=== PATIENT | male | born 1975 | race Caucasian/White ===

== ENCOUNTER 2019-01-28 13:02 | Observation (INO) | payer OTHER ==
[~2019-01-28] VITALS: Ht 167.6 cm; Wt 109.0 kg
[~2019-01-28 13:02] MED LIST: LOSA25TA2; METF-849
[2019-01-28] MEDS ORDERED: ASPIRIN 325 MG TAB PO STA (13:26)
[2019-01-28] MEDS ORDERED: NITROGLYCERIN 2% 1 GM OINT PKT TD STA (13:26)
[2019-01-28] MEDS ORDERED: morphine 4 MG/ML VIAL IV STA ×3 (13:26→20:47)
[2019-01-28] MEDS ORDERED: ONDANSETRON 4 MG INJ IV STA ×3 (13:26→20:47)
--- NOTE | 2019-01-28 14:04 | ERD ---
ER Documentation Chief Complaint Chief Complaint chest pain and sob since yesterday sent by pmd for abnormal ekg HPI 44-year-old gentleman history of hypertension hyperlipidemia diabetes who presents to the emergency room with chest pain. The patient states that yesterday evening he started to have chest discomfort. He describes it as a flicking sharp sensation in his left chest. Some subtle pleuritic component. No shortness of breath but strongly associated with diaphoresis. He went to a primary care office today and he said that his EKG was abnormal. He was sent to the emergency room. He does describe some moderate discomfort currently. He denies any mid back pain. He has had a mild sore throat. No cough. No recent travel immobilization or calf swelling. No prior history of cardiac disease and no prior cardiac work-up. ROS All systems reviewed and are negative except as per history of present illness. Medications Home Meds Reported Medications Atorvastatin Calcium (Atorvastatin Calcium) 20 Mg Tablet, 1 TAB ORAL QHS 01/28/19 Metformin Hcl* (Metformin Hcl*) 1,000 Mg Tablet, 1 TAB ORAL BID 01/28/19 Losartan Potassium* (Losartan Potassium*) 50 Mg Tablet, 1 TAB ORAL DAILY 01/28/19 Insulin Glargine* (Lantus*) 100 Unit/Ml Soln, 60 UNITS SC QHS 01/28/19 Glipizide* (Glipizide*) 10 Mg Tablet, 1 TAB ORAL BID 01/28/19 Insulin Lispro (Humalog Kwikpen U-100) 100 Unit/1 Ml Insuln.pen, 25 UNITS SC AC B 01/28/19 Omeprazole* (Omeprazole*) 20 Mg Capsule.dr, 1 CAP ORAL DAILY 01/28/19 Discontinued Reported Medications Losartan Potassium* (Cozaar*) 25 Mg Tablet 07/20/11 Metformin* (Glucophage*) 500 Mg Tab 07/20/11 Allergies Allergies: Coded Allergies: No Known Allergy (Unverified , 01/28/19) PMhx/Soc History of Surgery: Yes (ABDOMEN) Anesthesia Reaction: No Hx Neurological Disorder: No Hx Respiratory Disorders: No Hx Cardiac Disorders: Yes (HTN) Hx Psychiatric Problems: No Hx Miscellaneous Medical Probl: Yes (HTN) Hx Alcohol Use: Yes (Very rarely) Hx Substance Use: No Hx Tobacco Use: No Smoking Status: Never smoker FmHx Family History: No diabetes Physical Exam Vitals Vital Signs Date Temp Pulse Resp B/P (MAP) Pulse Ox O2 O2 Flow FiO2 Time Delivery Rate 01/28/19 98.0 104 18 154/91 98 Room Air 13:42 (112) 01/28/19 98.0 117 18 133/87 98 13:05 (102) Physical Exam General: Diaphoretic Head: Normocephalic, atraumatic. Eyes: Pupils equally reactive, EOM intact ENT: Moist mucous membranes Neck: Supple, no lymphadenopathy Respiratory: Lungs clear bilaterally, no distress Cardiovascular: RRR, no murmurs, rubs, or gallops Abdominal: Soft, non-tender, non-distended, no peritoneal signs : Deferred MSK: No edema, no unilateral swelling, 5/5 strength Neurologic: Alert and oriented, moving all extremities, normal speech, no focal weakness, no cerebellar signs Skin: No rash Psych: Normal mood Result Diagram: 01/28/19 1329 01/28/19 1329 Results 24 hrs Laboratory Tests Test 01/28/19 13:24 01/28/19 13:29 D-Dimer 306.73 ng/ml D-Dimer Comment Bedside Glucose 276 mg/dL White Blood Count 8.3 10^3/ul Red Blood Count 5.32 10^6/ul Hemoglobin 13.7 g/dl Hematocrit 43.1 % Mean Corpuscular Volume 81.0 fl Mean Corpuscular Hemoglobin 25.8 pg Mean Corpuscular Hemoglobin Concent 31.8 g/dl Red Cell Distribution Width 14.4 % Platelet Count 354 10^3/UL Mean Platelet Volume 10.0 fl Immature Granulocytes % 0.400 % Neutrophils % 75.3 % Lymphocytes % 12.0 % Monocytes % 10.7 % Eosinophils % 1.1 % Basophils % 0.5 % Nucleated Red Blood Cells % 0.0 /100WBC Immature Granulocytes # 0.030 10^3/ul Neutrophils # 6.3 10^3/ul Lymphocytes # 1.0 10^3/ul Monocytes # 0.9 10^3/ul Eosinophils # 0.1 10^3/ul Basophils # 0.0 10^3/ul Nucleated Red Blood Cells # 0.0 10^3/ul Sodium Level 137 mmol/L Potassium Level 4.3 mmol/L Chloride Level 96 mmol/L Carbon Dioxide Level 29 mmol/L Anion Gap 12 Blood Urea Nitrogen 14 mg/dl Creatinine 0.89 mg/dl Est Glomerular Filtrat Rate mL/min > 60 mL/min Glucose Level 310 mg/dl Calcium Level 10.2 mg/dl Troponin I < 0.012 ng/ml Current Medications Medications Dose Sig/Jevon Start Time Status Last (Trade) Ordered Route PRN Stop Time Admin Dose Reason Admin Aspirin 325 mg ONCE STAT 01/28/19 DC 01/28/19 (Aspirin) PO 13:26 13:34 01/28/19 13:28 1 inch ONCE STAT 01/28/19 DC 01/28/19 Nitroglycerin TD 13:26 13:34 01/28/19 13:28 (Nitroglyceri n 2% Oint) Morphine 4 mg ONCE STAT 01/28/19 DC 01/28/19 Sulfate IV 13:26 13:35 (morphine) 01/28/19 13:28 Ondansetron 4 mg ONCE STAT 01/28/19 DC 01/28/19 HCl (Zofran IV 13:26 13:34 Inj) 01/28/19 13:28 Procedures/MDM EKG, MONITORS, & DIAGNOSTIC IMAGING: EKG: I reviewed and interpreted a 12-lead EKG. Rhythm: Normal sinus rhythm ST Changes: No contiguous ST segment elevations T waves: No contiguous T wave inversions Impression: [No evidence of acute cardiac ischemia], however Q waves are noted in the inferior leads III and aVF Repeat EKG: EKG: I reviewed and interpreted a 12-lead EKG. Rhythm: Normal sinus rhythm ST Changes: No contiguous ST segment elevations T waves: No contiguous T wave inversions Impression: [No evidence of acute cardiac ischemia] Chest x-ray: I reviewed and interpreted a 1 view of the chest Mediastinum: No enlargement Cardiac silhouette: No cardiomegaly Airspace: Clear lung nunez bilaterally without evidence of pneumothorax Bones: No evidence of fracture PROCEDURES: [None] LAB INTERPRETATION: * Negative troponin, hyperglycemia without DKA, negative d-dimer MEDICAL DECISION MAKING: The patient's history, physical exam and clinical presentation is concerning for possible cardiogenic etiology and acute coronary syndrome. I am concerned that the patient has an element of associated diaphoresis. Based on the patient's clinical exam and history and risk factors, I have a much lower clinical concern for pulmonary embolism, acute aortic dissection, pneumothorax, pneumonia, cardiac tamponade. Despite low concern for pulmonary embolism there is a slight tachycardia and slight pleuritic component. D-dimer appropriate. Wells low risk criteria met. HEART Score: 5 MACE Rate: 16.6% Shared Decision Making: We had a conversation regarding risk stratification, MACE rate, and the risks, benefits, alternatives of disposition planning options. Disposition planning: Admission ER COURSE: * Aspirin nitro morphine provided. * Chest pain-free currently. * Troponin is negative. * Hospitalist team was concerned that the patient may require a Feed House Supervisor at some point during his hospital stay. They are recommending speaking to mexican food cook. * I discussed the case with Dr. Patrick, he reviewed the EKGs. He does not feel the patient requires emergent transfer to [facility] center. He does however state that this is someone who may require an angiogram during inpatient stay. He recommends attempt to transfer to a facility that has a active Feed House Supervisor. * Insurance carrier has been contacted to assist with transfer to appropriate facility. CONSULTATION: [None] DISPOSITION PLAN: Telemetry admission for management of chest pain to rule out acute coronary syndrome, serial enzymes, risk stratification and consideration of provocative testing CONSULTATION: Admitting team: Pending assignment given need for possible transfer as discussed above. Patient is pending disposition plan based on above. Departure Diagnosis: Primary Impression: Chest pain Chest pain type: unspecified Qualified Codes: R07.9 - Chest pain, unspecified Additional Impression: Hyperglycemia Condition: Stable QUITA DOLAN MD Jan 28, 2019 14:04
[2019-01-28] MEDS ORDERED: GLIP10TA14 ORAL (14:10)
[2019-01-28] MEDS ORDERED: INSU100I12 SC (14:10)
[2019-01-28] MEDS ORDERED: LOSA50TA14 ORAL (14:10)
[2019-01-28] MEDS ORDERED: METF100010 ORAL (14:10)
[2019-01-28] MEDS ORDERED: ATOR20TA65 ORAL (14:10)
[2019-01-28] MEDS ORDERED: OMEP20CA16 ORAL (14:10)
[2019-01-28] MEDS ORDERED: LANT3I SC (14:10)
--- NOTE | 2019-01-28 21:20 | HP ---
Date/Time of Note Date/Time of Note DATE: 01/28/19 TIME: 21:19 Assessment/Plan VTE Prophylaxis SCD applied (from Nsg): Yes Pharmacological prophylaxis: NA/contraindicated Pharm contraindication: low risk/ambulating Lines/Catheters IV Catheter Type (from Nrsg): Saline Lock Assessment/Plan Hospital Course This is a 44-year-old male being admitted to the telemetry floor for: #1 chest pain: Rule out ACS. Will trend cardiac enzymes x3, the first that was negative. Will check an echocardiogram. PRN morphine. Will remove the nitroglycerin patch at the current time as the patient does report a headache and I think this may be the cause of it. Will consult cardiology . Patient was attempted to be transferred to another facility for cardiac cath however no bed was able to be obtained. #2 severe headache: Possibly secondary to Nitropatch, however he is not having any relief with morphine. We will remove the nitro patch. Will obtain a CT of the head without contrast stat. #3 Diabetes mellitus: We will resume home insulin, will hold home oral medications especially metformin given possible need for cardiac catheter in the coming days. Insulin sliding scale. #4 hyperlipidemia: We will check lipid panel, continue statin #5 hypertension: Continue losartan #6 obesity: We will check hemoglobin A 1C, lipid panel, TSH #7 DVT GI prophylaxis: SCDs, home PPI Further treatment strategy will be implemented as per the clinical course Result Diagram: 01/28/19 1329 01/28/19 1329 Results 24hrs Laboratory Tests Test 01/28/19 13:24 01/28/19 13:29 01/28/19 19:33 D-Dimer 306.73 D-Dimer Comment Bedside Glucose 276 H White Blood Count 8.3 Red Blood Count 5.32 Hemoglobin 13.7 L Hematocrit 43.1 Mean Corpuscular Volume 81.0 L Mean Corpuscular Hemoglobin 25.8 L Mean Corpuscular Hemoglobin Concent 31.8 L Red Cell Distribution Width 14.4 Platelet Count 354 Mean Platelet Volume 10.0 Immature Granulocytes % 0.400 Neutrophils % 75.3 Lymphocytes % 12.0 L Monocytes % 10.7 Eosinophils % 1.1 Basophils % 0.5 Nucleated Red Blood Cells % 0.0 Immature Granulocytes # 0.030 Neutrophils # 6.3 Lymphocytes # 1.0 Monocytes # 0.9 Eosinophils # 0.1 Basophils # 0.0 Nucleated Red Blood Cells # 0.0 Sodium Level 137 Potassium Level 4.3 Chloride Level 96 L Carbon Dioxide Level 29 Anion Gap 12 Blood Urea Nitrogen 14 Creatinine 0.89 Est Glomerular Filtrat Rate mL/min > 60 Glucose Level 310 H Calcium Level 10.2 Troponin I < 0.012 < 0.012 Creatine Kinase 47 Creatine Kinase Index 0.6 Creatinine Kinase MB (Mass) 0.27 HPI/ROS Admit Date/Time Admit Date/Time Hx of Present Illness Chief complaint: Chest pain 44-year-old gentleman history of hypertension hyperlipidemia diabetes who presents to the emergency room with chest pain. The patient states that yesterday evening he started to have chest discomfort. He describes it as a sharp sensation in his left chest. Some subtle pleuritic component. No shortness of breath but strongly associated with diaphoresis. He went to a primary care office today and he said that his EKG was abnormal. He was sent to the emergency room. He does describe some moderate discomfort currently. He denies any mid back pain. He has had a mild sore throat. No cough. No recent travel immobilization or calf swelling. The ED physician did discuss the case with hospitalist as well as hot die press feeder and decision was made to attempt to transfer the patient to a working Insurance Marketing Specialist facility if possible. As no beds were found patient was admitted for further work-up. Upon my examination of the patient at the bedside he does report a severe headache that has not been relieved with morphine. He does currently have a nitro patch on. Allergies: NKDA Medications: glipizide 10 mg p.o. twice daily Metformin 1000 mg p.o. twice daily Atorvastatin 20 mg p.o. nightly Lantus 60 units subcu nightly Insulin lispro 25 units AC at bedtime Losartan 50 mg p.o. daily Omeprazole 20 mg p.o. daily indications: ROS Const: As per HPI Eyes : No pain discharge or redness or change in visual acuity ENT: As per HPI Respiratory: No shortness of breath, cough, sputum, wheezing, or pleuritic pain Cardiovascular: As per HPI GI : no change in appetite, abdominal pain, nausea, vomiting, diarrhea, constipation, or change in the color his stool Genitourinary: No dysuria, hematuria, flank pain , discharge or CVA tenderness Musculoskeletal: No joint pain, back pain, neck pain, restricted range of motion in neck or joints Skin: No rash, bruising or hives Neuro: As per HPI Endocrine: No polyuria, polydipsia, temperature intolerance Psych: No hallucination, depression, anxiety or suicidal ideation PMH/Family/Social Past Medical History Diabetes mellitus, hyperlipidemia, hypertension Coded Allergies: No Known Allergy (Unverified , 01/28/19) Past Surgical History Abdominal surgery status post work accident Family History Significant Family History: no pertinent family hx Social History Alcohol Use: none Smoking Status: Never smoker Drug Use: none Exam/Review of Systems Vital Signs Vitals Vital Signs Date Temp Pulse Resp B/P (MAP) Pulse Ox O2 O2 Flow FiO2 Time Delivery Rate 01/28/19 94 20 147/91 100 Room Air 21:00 (109) 01/28/19 98.2 18:00 Exam Exam General: Patient is a pleasant male currently lying in bed he does not appear to be in any acute distress, but he does report a headache. HEENT: Atraumatic, normocephalic. The pupils are equal, round and reactive. Extraocular motor are intact, throat mildly hyperemic, no tonsillar exudates seen. Neck: Supple with full range of motion. No rigidity or meningismus Chest: Nontender Lungs: Clear to auscultation bilaterally no crackles rales or wheezing Heart: Normal S1-S2, Regular rhythm and rate. No murmur, S3, or S4 Abdomen: Obese, soft , nontender, nondistended , bowel sounds are present. No guarding no rebound tenderness , No masses or organomegaly. No costovertebral temporal angle mass Extremities: Normal to inspection, no edema no cyanosis Neurologic: Normal mental status, speech normal, cranial nerves II through XII are intact, motor and sensory are intact, no focal weakness Additional Comments EKG: Rhythm: Normal sinus rhythm ST Changes: No contiguous ST segment elevations T waves: No contiguous T wave inversions Impression: [No evidence of acute cardiac ischemia], however Q waves are noted in the inferior leads III and aVF PROCEDURE: XR Chest. CLINICAL INDICATION: Shortness of breath. TECHNIQUE: Single frontal view. COMPARISON: 07/20/2011 FINDINGS: The lungs are clear. The heart size is normal. There is no pleural effusion. There is no pneumothorax. IMPRESSION: No focal consolidation. RPTAT: QQ Aroldo Naidu Physician Date Time Electronically viewed and signed by Aroldo Naidu, Physician on 01/28/2019 13:44 RD/ CC: QUITA DOLAN MD [id number] MARVA DAVIS Jan 28, 2019 21:20
[2019-01-28] MEDS ORDERED: ONDANSETRON 4 MG INJ IV PRN ×2 (21:30→22:00)
[2019-01-28] MEDS ORDERED: BISACODYL (EC) 5 MG TAB PO PRN (21:30)
[2019-01-28] MEDS ORDERED: DOCUSATE SODIUM 100 MG CAP PO PRN (21:30)
[2019-01-28] MEDS ORDERED: NACL 0.9% 3 ML SYG IV SCH (21:30)
[2019-01-28] MEDS ORDERED: NITROGLYCERIN (SL) 0.4 MG TAB SL PRN (21:30)
[2019-01-28] MEDS ORDERED: ACETAMINOPHEN 325 MG TAB PO PRN (22:00)
[2019-01-28] MEDS ORDERED: INSULIN GLARGINE [LANTus] (100 UNITS/ML) SYG SC SCH (22:30)
[2019-01-28 23:30] VITALS: Ht 167.6 cm; Wt 109.0 kg
[2019-01-29 00:10] VITALS: BP 122/78; PULSE 95; RESP 20
[2019-01-29] MEDS: HEPARIN 5,000 UNIT/1 ML VIAL SC SCH ×3 (00:28→14:09)
[2019-01-29] MEDS: ACETAMINOPHEN 325 MG TAB PO PRN ×2 (00:52→08:14)
[2019-01-29] MEDS: morphine 2 MG INJ IV PRN ×3 (02:18→10:33)
[2019-01-29 04:17] VITALS: BP 125/68; PULSE 93; RESP 20
[2019-01-29] MEDS ORDERED: PANTOPRAZOLE (EC) 40 MG TAB PO SCH (06:00)
[2019-01-29] MEDS ORDERED: INSULIN ASPART [NOVOLOG] 3 ML PEN SC SCH ×2 (07:00→18:00)
[2019-01-29 07:21] VITALS: BP 126/71; PULSE 86; RESP 17
[2019-01-29] MEDS ORDERED: LOSARTAN 50 MG TAB PO SCH (09:00)
[2019-01-29] MEDS ORDERED: ASPIRIN 81 MG TAB PO SCH (09:00)
[2019-01-29 11:28] VITALS: BP 124/69; PULSE 59; RESP 19
--- NOTE | 2019-01-29 11:33 | CONS ---
Assessment/Plan Assessment/Plan Hospital Course (Demo Recall) Chest pain: Rule out ACS diabetes: Poorly controlled hypertension: Under control now Dyslipidemia: Under control with statin Headache Recommendations: We will continue with the current cardiac care for now. We will schedule patient for Lexiscan stress addressing the obstructive coronary artery disease Echocardiogram will be checked thank you Thank you ENEDELIA CHU MD [facility] Consultation Date/Type/Reason Admit Date/Time Date of Consultation: Jan 29, 2019 Type of Consult Cardiology Reason for Consultation chest pain Requesting Provider: MARVA DAVIS Date/Time of Note DATE: 01/29/19 TIME: 11:30 Hx of Present Illness Interventional cardiology consultation note Chief complaint: Chest pain high blood pressure. Diaphoresis Reason for consult: Aspirin History of present illness: Thank you for this referral. This is a pleasant 44-year-old gentleman history of diabetes poorly controlled hypertension dyslipidemia who came to emergency room with complaint. Patient said he had episode of chest pain mostly sharp on the left side a few days ago. He also has had sweating and diaphoresis. He also complains of headache since he has come to the hospital. His chest pain has resolved noncardiac and have been negative. She does not exercise more than he just had a knee surgery for meniscus repair on his knee and is not able to walk much Allergies: No known drug allergy Medications were reviewed as per medical reconciliation sheet Family history: No history of early coronary artery disease Social history: Non-smoker Past medical history: Diabetes hypertension dyslipidemia obesity osteoarthritis of the knees status post meniscus injury and repair about 2 months ago Review of system: Patient denies all others except for above-mentioned Past Medical History Home Meds Reported Medications Atorvastatin Calcium (Atorvastatin Calcium) 20 Mg Tablet, 1 TAB ORAL QHS 01/28/19 Metformin Hcl* (Metformin Hcl*) 1,000 Mg Tablet, 1 TAB ORAL BID 01/28/19 Losartan Potassium* (Losartan Potassium*) 50 Mg Tablet, 1 TAB ORAL DAILY 01/28/19 Insulin Glargine* (Lantus*) 100 Unit/Ml Soln, 60 UNITS SC QHS 01/28/19 Glipizide* (Glipizide*) 10 Mg Tablet, 1 TAB ORAL BID 01/28/19 Insulin Lispro (Humalog Kwikpen U-100) 100 Unit/1 Ml Insuln.pen, 25 UNITS SC AC B 01/28/19 Omeprazole* (Omeprazole*) 20 Mg Capsule.dr, 1 CAP ORAL DAILY 01/28/19 Discontinued Reported Medications Losartan Potassium* (Cozaar*) 25 Mg Tablet 07/20/11 Metformin* (Glucophage*) 500 Mg Tab 07/20/11 Medications Current Medications IV Flush (NS 3 ml) 3 ml PER PROTOCOL IV ; Start 01/28/19 at 21:30 Ondansetron HCl (Zofran Inj) 4 mg Q6H PRN IV NAUSEA/VOMITING; Start 01/28/19 at 21:30 Aspirin (Aspirin) 81 mg DAILY PO Last administered on 01/29/19at 08:15; Admin Dose 81 MG; Start 01/29/19 at 09:00 Nitroglycerin (Nitroglycerin (Sl Tab) 0.4 Mg) 1 tab Q5M PRN SL .CHEST PAIN; Start 01/28/19 at 21:30 Acetaminophen (Tylenol Tab) 650 mg Q6H PRN PO .PAIN 1-3 OR TEMP Last administered on 01/29/19at 08:14; Admin Dose 650 MG; Start 01/28/19 at 21:30 Morphine Sulfate (morphine) 2 mg Q4H PRN IV .PAIN 7-10 Last administered on 01/29/19at 10:33; Admin Dose 2 MG; Start 01/28/19 at 21:30 Docusate Sodium (Colace) 100 mg Q12H PRN PO .CONSTIPATION; Start 01/28/19 at 21:30 Bisacodyl (Dulcolax) 5 mg DAILY PRN PO .CONSTIPATION; Start 01/28/19 at 21:30 Heparin Sodium (Porcine) (Heparin (5000 Units/1ml)) 5,000 unit Q8 SC Last administered on 01/29/19at 05:26; Admin Dose 5,000 UNIT; Start 01/28/19 at 22:00 Insulin Glargine (Lantus) 60 units QHS SC Last administered on 01/29/19at 00:59; Admin Dose 60 UNITS; Start 01/28/19 at 22:30 Insulin Aspart (Novolog Insulin Pen) 25 unit AC BREAKFAST SC Last administered on 01/29/19at 10:22; Admin Dose 25 UNIT; Start 01/29/19 at 07:00 Pantoprazole (Protonix Tab) 40 mg DAILY@06 PO Last administered on 7/23/19at 05:21; Admin Dose 40 MG; Start 01/29/19 at 06:00 Atorvastatin Calcium (Lipitor) 20 mg QHS PO ; Start 01/29/19 at 21:00 Losartan Potassium (Cozaar) 50 mg DAILY PO Last administered on 01/29/19at 08:15; Admin Dose 50 MG; Start 01/29/19 at 09:00 Allergies: Coded Allergies: No Known Allergy (Unverified , 01/28/19) Social History Alcohol Use: none Smoking Status: Former smoker Drug Use: none Exam/Review of Systems Vital Signs Vitals Vital Signs Date Temp Pulse Resp B/P (MAP) Pulse Ox O2 O2 Flow FiO2 Time Delivery Rate 01/29/19 98.0 59 19 124/69 93 11:28 (87) 01/28/19 Room Air 22:10 Intake and Output 01/28/19 01/28/19 01/29/19 1515:00 23:00 07:00 IntakeIntake Total 240 ml BalanceBalance 240 ml Exam Exam General: no acute distress HEENT: NC/AT. pupils are equal. round. NECK: NO JVD. no stridor. CV: RRR. systolic murmur; no gallop or rubs. PULM: no wheezing or rhonchi. GI: SOFT, NT, ND, no rebound or guarding Extremity: trace B/L LE edema. no clubbing. neuro: awake and alert, OX3. Psych: calm and pleasant rectal: deferred EKG was personally reviewed showed normal sinus rhythm nonspecific ST-T wave abnormalities CT of the head read by radiology shows:Negative unenhanced head CT. Labs Result Diagram: 01/29/19 0501/29/19 0525 Results 24hrs Laboratory Tests Test 01/28/19 13:24 01/28/19 13:29 01/28/19 19:33 01/28/19 22:22 D-Dimer 306.73 D-Dimer Comment Bedside Glucose 276 H 264 H White Blood Count 8.3 Red Blood Count 5.32 Hemoglobin 13.7 L Hematocrit 43.1 Mean Corpuscular 81.0 L Volume Mean Corpuscular 25.8 L Hemoglobin Mean Corpuscular 31.8 L Hemoglobin Concent Red Cell 14.4 Distribution Width Platelet Count 354 Mean Platelet Volume 10.0 Immature 0.400 Granulocytes % Neutrophils % 75.3 Lymphocytes % 12.0 L Monocytes % 10.7 Eosinophils % 1.1 Basophils % 0.5 Nucleated Red Blood 0.0 Cells % Immature 0.030 Granulocytes # Neutrophils # 6.3 Lymphocytes # 1.0 Monocytes # 0.9 Eosinophils # 0.1 Basophils # 0.0 Nucleated Red Blood 0.0 Cells # Sodium Level 137 Potassium Level 4.3 Chloride Level 96 L Carbon Dioxide Level 29 Anion Gap 12 Blood Urea Nitrogen 14 Creatinine 0.89 Est Glomerular > 60 Filtrat Rate mL/min Glucose Level 310 H Calcium Level 10.2 Troponin I < 0.012 < 0.012 Creatine Kinase 47 Creatine Kinase 0.6 Index Creatinine Kinase MB 0.27 (Mass) Test 01/29/19 00:45 01/29/19 05:25 01/29/19 08:04 01/29/19 10:16 Creatine Kinase 41 Creatine Kinase 0.7 Index Creatinine Kinase MB 0.29 (Mass) Troponin I < 0.012 White Blood Count 8.0 Red Blood Count 4.80 Hemoglobin 12.3 L Hematocrit 39.5 L Mean Corpuscular 82.3 Volume Mean Corpuscular 25.6 L Hemoglobin Mean Corpuscular 31.1 L Hemoglobin Concent Red Cell 14.7 H Distribution Width Platelet Count 293 Mean Platelet Volume 10.3 Immature 0.400 Granulocytes % Neutrophils % 71.4 Lymphocytes % 13.3 L Monocytes % 13.6 H Eosinophils % 0.9 Basophils % 0.4 Nucleated Red Blood 0.0 Cells % Immature 0.030 Granulocytes # Neutrophils # 5.7 Lymphocytes # 1.1 Monocytes # 1.1 H Eosinophils # 0.1 Basophils # 0.0 Nucleated Red Blood 0.0 Cells # Sodium Level 136 Potassium Level 4.4 Chloride Level 94 L Carbon Dioxide Level 35 H Anion Gap 7 Blood Urea Nitrogen 14 Creatinine 0.96 Est Glomerular > 60 Filtrat Rate mL/min Glucose Level 291 H Hemoglobin A1c 9.2 H Calcium Level 9.2 Magnesium Level 2.0 Total Bilirubin 0.9 Direct Bilirubin 0.00 Indirect Bilirubin 0.9 Aspartate Amino 40 Transf (AST/SGOT) Alanine 63 Aminotransferase (AL T/SGPT) Alkaline Phosphatase 80 Total Protein 6.7 Albumin 3.8 Globulin 2.90 Albumin/Globulin 1.31 Ratio Triglycerides Level 296 H Cholesterol Level 130 LDL Cholesterol, 48 Calculated HDL Cholesterol 23 L Cholesterol/HDL 5.6 Ratio Thyroid Stimulating 1.260 Hormone (TSH) Bedside Glucose 266 H 374 H Medications Medications Current Medications IV Flush (NS 3 ml) 3 ml PER PROTOCOL IV ; Start 01/28/19 at 21:30 Ondansetron HCl (Zofran Inj) 4 mg Q6H PRN IV NAUSEA/VOMITING; Start 01/28/19 at 21:30 Aspirin (Aspirin) 81 mg DAILY PO Last administered on 01/29/19 08:15; Admin Dose 81 MG; Start 01/29/19 at 09:00 Nitroglycerin (Nitroglycerin (Sl Tab) 0.4 Mg) 1 tab Q5M PRN SL .CHEST PAIN; Start 01/28/19 at 21:30 Acetaminophen (Tylenol Tab) 650 mg Q6H PRN PO .PAIN 1-3 OR TEMP Last administered on 01/29/19 08:14; Admin Dose 650 MG; Start 01/28/19 at 21:30 Morphine Sulfate (morphine) 2 mg Q4H PRN IV .PAIN 7-10 Last administered on 01/29/19at 10:33; Admin Dose 2 MG; Start 01/28/19 at 21:30 Docusate Sodium (Colace) 100 mg Q12H PRN PO .CONSTIPATION; Start 01/28/19 at 21:30 Bisacodyl (Dulcolax) 5 mg DAILY PRN PO .CONSTIPATION; Start 01/28/19 at 21:30 Heparin Sodium (Porcine) (Heparin (5000 Units/1ml)) 5,000 unit Q8 SC Last administered on 01/29/19at 05:26; Admin Dose 5,000 UNIT; Start 01/28/19 at 22:00 Insulin Glargine (Lantus) 60 units QHS SC Last administered on 01/29/19at 00:59; Admin Dose 60 UNITS; Start 01/28/19 at 22:30 Insulin Aspart (Novolog Insulin Pen) 25 unit AC BREAKFAST SC Last administered on 01/29/19at 10:22; Admin Dose 25 UNIT; Start 01/29/19 at 07:00 Pantoprazole (Protonix Tab) 40 mg DAILY@06 PO Last administered on 01/29/19 05:21; Admin Dose 40 MG; Start 01/29/19 at 06:00 Atorvastatin Calcium (Lipitor) 20 mg QHS PO ; Start 01/29/19 at 21:00 Losartan Potassium (Cozaar) 50 mg DAILY PO Last administered on 01/29/19at 08:15; Admin Dose 50 MG; Start 01/29/19 at 09:00 ENEDELIA CHU MD Jan 29, 2019 11:33
--- NOTE | 2019-01-29 12:30 | RADRPT ---
Echocardiogram Report Patient Name: PATRICK MORGANPatient ID: [id number] : 1975 (44y )Study Date: 01/29/2019 7:21:25 AM Gender: MAccession #: [id number] Tech: Marquis Mattson RDCS Location: [facility] Ref.Physician: MARVA DAVIS Height(Cm): BSA: Weight(Kg): Quality: AdequateOrder Physician: MARVA DAVIS Account #: Procedures: Echocardiographic Report: Transthoracic echocardiogram with complete 2D, M-Mode, and doppler examination. Indications: Chest Pain. Measurements: 2D/M Mode Doppler Measurement Value Normal Range Measurement Value Normal Range LVIDd 2D 4.3 [ 4.2 - 5.8 ] cm AV Peak Gustavo 1.5 [ 100.0 - 170.0 ] cm/sec LVIDs 2D 2.5 [ 2.5 - 4.0 ] cm AV Peak PG 9.0 [ 2.0 - 9.0 ] mmHg LVPWd 2D 1.2 [ 0.6 - 1.0 ] cm LVOT Peak Gustavo 1.1 [ 70.0 - 110.0 ] cm/sec IVSd 2D 1.0 [ 0.6 - 1.0 ] cm LVOT Peak PG 5.0 [ 2.0 - 6.0 ] mmHg AoR Diam 2D 3.2 [ 2.6 - 3.4 ] cm MV E Peak Gustavo 0.7 [ 60.0 - 130.0 ] cm/sec EDV 2D 83.1 [ 62.0 - 150.0 ] ml MV A Peak Gustavo 0.7 [ 100.0 - 120.0 ] cm/sec ESV 2D 21.4 [ 21.0 - 61.0 ] ml MV E/A 1.0 [ 0.8 - 1.5 ] ratio EF 2D 74.2 [ 52.0 - 72.0 ] percent MV Decel Time 197 [ 104 - 258 ] msec LA Dimen 2D 3.3 [ 3.0 - 4.0 ] cm Lat E` Gustavo 0.1 [ 10.0 - 15.0 ] cm/sec Lateral E/E` 5.4 [ 1.0 - 2.0 ] ratio Med E` Gustavo 0.1 cm/sec MV E/A 1.0 [ 0.8 - 1.5 ] ratio TR Peak Gustavo 2.3 [ 100.0 - 280.0 ] cm/sec TR Peak PG 20.0 mmHg RVSP 30.0 [ 10.0 - 36.0 ] mmHg RA Pressure 10.0 mmHg Findings: Left Ventricle: Normal left ventricular systolic function. Normal left ventricular cavity size. Mild concentric left ventricular hypertrophy. Ejection fraction is visually estimated at 65 %. Tissue Doppler/Mitral Doppler indices are consistent with impaired relaxation (Stage I diastolic dysfunction). Right Ventricle: Normal right ventricular size. Normal right ventricular systolic function. Left Atrium: The left atrium is normal in size. Right Atrium: The right atrium is normal in size. Mitral Valve: Normal appearance and function of the mitral valve with trace physiologic regurgitation. Aortic Valve: Normal appearance of the aortic valve. No significant aortic stenosis or insufficiency. Tricuspid Valve: Normal appearance and function of the tricuspid valve with trace physiologic regurgitation. Normal right ventricular systolic pressure. The estimated Peak RVSP is 30 mmHg. Pulmonic Valve: Normal pulmonic valve appearance. Pericardium: Normal pericardium with no significant pericardial effusion. Aorta: Normal aortic root. IVC: Normal size and normal respiratory collapse consistent with normal right atrial pressure. Conclusions: Normal left ventricular systolic function. Normal left ventricular cavity size. Mild concentric left ventricular hypertrophy. Ejection fraction is visually estimated at 65 %. Tissue Doppler/Mitral Doppler indices are consistent with impaired relaxation (Stage I diastolic dysfunction). Normal appearance of the aortic valve. No significant aortic stenosis or insufficiency. Normal appearance and function of the tricuspid valve with trace physiologic regurgitation. Normal right ventricular systolic pressure. The estimated Peak RVSP is 30 mmHg. Normal appearance and function of the mitral valve with trace physiologic regurgitation. Electronically Signed By: Freedom Patrick 2019-01-29 12:29:13 PDT
[2019-01-29] MEDS ORDERED: REGADENOSON 0.4 MG/5 ML SYG ONE (12:53)
[2019-01-29] MEDS ORDERED: IBUPROFEN 600 MG TAB PO PRN (14:30)
--- NOTE | 2019-01-29 14:32 | DS ---
Date/Time of Note Date/Time of Note DATE: 01/29/19 TIME: 14:27 Discharge Summary Admission/Discharge Info Admit Date/Time Jan 28, 2019 at 21:19 Discharge Date/Time Discharge Diagnosis 1. Chest pain, musculoskeletal, negative stress thallium test 2. HTN, controlled 3. DM, resume home medications, follow up with PCP 4. Obesity, loss weight 5. Headache due to nitroglycerin, tylenol prn 6. Dyslipidemia, on statin Patient Condition: Stable Procedures PROCEDURE: Lexiscan myocardial perfusion study CLINICAL INDICATION: 44 -year-old patient complaining of chest pain. TECHNIQUE: Lexiscan 0.4 mg intravenously separate acquisition gated myocardial perfusion SPECT using Tc 99m Myoview 33.5 mCi intravenously at stress and Tc-99m Myoview, 11.2 mCi intravenously at rest was performed using the rest/stress sequence. Poststress Myoview SPECT images were obtained in the supine position. COMPARISON: No prior studies. FINDINGS: Perfusion images reveal mild nonreversible perfusion defect in the inferior wall . Lexiscan post stress gated SPECT images demonstrate no wall motion abnormalities. IMPRESSION: 1. No evidence of stress-induced ischemia. 2. No wall motion abnormalities. 3. The left ventricle ejection fraction at stress is 56%. A call report was made to Dr Patrick at 2:57 pm on 01/29/2019. RPTAT: HH .Lillian Wilkinson MD, Date Time Electronically viewed and signed by .Lillian Wilkinson MD, MD on 01/29/2019 15:01 Hospital Course 44-year-old gentleman history of hypertension hyperlipidemia diabetes who pr esents to the emergency room with chest pain. The patient states that yesterday evening he started to have chest discomfort. He describes it as a sharp sensation in his left chest. Some subtle pleuritic component. No shortness of breath but strongly associated with diaphoresis. He went to a primary care office today and he said that his EKG was abnormal. He was sent to the em ergency room. He does describe some moderate discomfort currently. He denies any mid back pain. He has had a mild sore throat. No cough. Patient has left upper chest wall tenderness. Troponin is negative, echocardiography unremarkable. Stress thallium test is negative. Patient has headache from NTG that is stopped. Patient will take tylenol prn for headache. DM on insulin that he will follow up with PCP to adjust dosage. HbA1c is 9.2. Patient states his BG is controlled with BG<120s. Home Meds Reported Medications Atorvastatin Calcium (Atorvastatin Calcium) 20 Mg Tablet, 1 TAB ORAL QHS 01/28/19 Metformin Hcl* (Metformin Hcl*) 1,000 Mg Tablet, 1 TAB ORAL BID 01/28/19 Losartan Potassium* (Losartan Potassium*) 50 Mg Tablet, 1 TAB ORAL DAILY 01/28/19 Insulin Glargine* (Lantus*) 100 Unit/Ml Soln, 60 UNITS SC QHS 01/28/19 Glipizide* (Glipizide*) 10 Mg Tablet, 1 TAB ORAL BID 01/28/19 Insulin Lispro (Humalog Kwikpen U-100) 100 Unit/1 Ml Insuln.pen, 25 UNITS SC AC B 01/28/19 Omeprazole* (Omeprazole*) 20 Mg Capsule.dr, 1 CAP ORAL DAILY 01/28/19 Discontinued Reported Medications Losartan Potassium* (Cozaar*) 25 Mg Tablet 07/20/11 Metformin* (Glucophage*) 500 Mg Tab 07/20/11 Follow-up Plan PCP in one week Primary Care Provider Care Physician No Primary Pending Labs Laboratory Tests Test 01/28/19 19:33 01/28/19 22:22 01/29/19 00:45 01/29/19 05:25 Creatine 47 41 Kinase IU/L (23-200) IU/L (23-200) Creatine Kinase 0.6 0.7 Index Creatinine 0.27 0.29 Kinase MB ng/ml (0.0-2.4) ng/ml (0.0-2.4 (Mass) ) Troponin I < 0.012 < 0.012 ng/ml (0.000-0. ng/ml (0.000-0 120) .120) Bedside 264 Glucose mg/dL (70-220) White Blood 8.0 Count 10^3/ul (4.8-1 0.8) Red Blood 4.80 Count 10^6/ul (4.70- 6.10) Hemoglobin 12.3 g/dl (14.0-18. 0) Hematocrit 39.5 % (42.0-52.0) Mean 82.3 Corpuscular fl (82.0-101.0 Volume ) Mean 25.6 Corpuscular pg (29.0-33.0) Hemoglobin Mean 31.1 Corpuscular g/dl (32.0-37. Hemoglobin Conc 0) ent Red Cell 14.7 Distribution % (11.5-14.5) Width Platelet Count 293 10^3/UL (140-4 15) Mean Platelet 10.3 Volume fl (7.4-10.4) Immature 0.400 Granulocytes % % (0.001-0.429 ) Neutrophils % 71.4 % (39.0-77.0) Lymphocytes % 13.3 % (15.0-51.0) Monocytes % 13.6 % (0.0-11.0) Eosinophils % 0.9 % (0.0-7.0) Basophils % 0.4 % (0.0-2.0) Nucleated Red 0.0 Blood Cells % /100WBC (0.0-0 .0) Immature 0.030 Granulocytes # 10^3/ul (0.0-0 .031) Neutrophils # 5.7 10^3/ul (1.6-7 .5) Lymphocytes # 1.1 10^3/ul (0.8-2 .9) Monocytes # 1.1 10^3/ul (0.3-0 .9) Eosinophils # 0.1 10^3/ul (0.0-0 .5) Basophils # 0.0 10^3/ul (0.0-0 .1) Nucleated Red 0.0 Blood Cells # 10^3/ul (0.0-0 .0) Sodium Level 136 mmol/L (135-14 4) Potassium 4.4 Level mmol/L (3.5-5. 1) Chloride Level 94 mmol/L (97-110 ) Carbon Dioxide 35 Level mmol/L (21-31) Anion Gap 7 (5-13) Blood Urea 14 Nitrogen mg/dl (7-20) Creatinine 0.96 mg/dl (0.61-1. 24) Est Glomerular > 60 Filtrat mL/min (>60) Rate mL/min Glucose Level 291 mg/dl (70-220) Hemoglobin A1c 9.2 % (0-5.9) Calcium Level 9.2 mg/dl (8.4-10. 2) Magnesium 2.0 Level mg/dl (1.7-2.5 ) Total 0.9 Bilirubin mg/dl (0.2-1.3 ) Direct 0.00 Bilirubin mg/dl (0.00-0. 20) Indirect 0.9 Bilirubin mg/dl (0-1.1) Aspartate Amino 40 Transf (AST/SGO IU/L (15-46) T) Alanine 63 Aminotransferas IU/L (13-69) e (ALT/SGPT) Alkaline 80 Phosphatase IU/L (42-121) Total Protein 6.7 g/dl (6.1-8.1) Albumin 3.8 g/dl (3.3-4.9) Globulin 2.90 g/dl (1.3-3.2) Albumin/Globuli 1.31 n Ratio Triglycerides 296 Level mg/dl (0-149) Cholesterol 130 Level mg/dl (100-200 ) LDL 48 mg/dl Cholesterol, Calculated HDL 23 Cholesterol mg/dl (27-67) Cholesterol/HDL 5.6 RATIO Ratio Thyroid 1.260 Stimulating MIU/L (0.465-4 Hormone (TSH) .680) Test 01/29/19 08:04 01/29/19 10:16 Bedside 266 374 Glucose mg/dL (70-220) mg/dL (70-220) JAIR BEY MD Jan 29, 2019 14:32
[2019-01-29 15:24] VITALS: BP 122/73; PULSE 86; RESP 19
[2019-01-29] MEDS ORDERED: ATORVASTATIN 20 MG TAB PO SCH (21:00)
== END 2019-01-29 18:00 | disposition home or self-care (01) ==
LOC: E/R 13:02 → 6WM 21:19
PROVIDERS: ADMIT Family Medicine; ATTEND Family Medicine
DX: R07.89 Other chest pain (principal); I10 Essential (primary) hypertension; E78.5 Hyperlipidemia, unspecified; E11.9 Type 2 diabetes mellitus without complications; Z79.4 Long term (current) use of insulin; E66.9 Obesity, unspecified; Z68.38 Body mass index [BMI] 38.0-38.9, adult; R51 Headache; Z87.891 Personal history of nicotine dependence
CPT/HCPCS: 36415; 70450; 71045; 78452; 80048; 80053; 80061; 82550; 82553; 82962; 83036; 83735; 84443; 84484; 85025; 85378; 93005; 93017; 93306; 96374; 96375; 96376; A9500; A9505; J1644; J1815; J2270; J2405; J2785; Z7500; Z7502; Z7610; G0378